=== PATIENT | male | born 1975 | race Caucasian/White ===

== ENCOUNTER 2020-12-25 14:08 | Emergency (ER) | payer MEDICAID, SELFPAY ==
[2020-12-25 14:10] VITALS: BP 134/77; PULSE 76; RESP 18; TEMP 36.8; O2SAT 98
--- NOTE | 2020-12-25 14:10 | ED.SKABFB ---
HPI - Skin/Abscess/Foreign Bdy General Chief complaint: Skin/Abscess/Foreign Body Stated complaint: poison jadyn Time Seen by Provider: 12/25/20 14:10 Source: patient and RN notes reviewed History of Present Illness HPI narrative: Patient is a 45-year-old male who presents the urgent care with complaints of poison jadyn to the right arm and bilateral lower legs. Patient states that he is highly allergic to poison jadyn and typically gets it really bad . Patient states that started 4 days ago and he has been using calamine, cortisone intact no scrub. Patient also reports of areas to the groin. No other acute complaints. No acute distress noted. Patient aware of the plan of care. Some parts of this dictation were generated by voice recognition software and may contain typographical and/or grammatical inaccuracies. Related Data Allergies Allergy/AdvReac Type Severity Reaction Status Date / Time No Known Allergies Allergy Verified 12/25/20 14:23 Review of Systems Review of Systems: CONSTITUTIONAL: Denies fever, chills, or sweats. EYES: Denies visual changes, redness, or discharge. ENT: Denies rhinorrhea, congestion, sore throat, or otalgia. CARDIOVASCULAR: Denies chest pain, palpitations, or edema. RESPIRATORY: Denies cough or dyspnea. GASTROINTESTINAL: Denies abdominal pain, nausea, vomiting, or diarrhea. GENITOURINARY: Denies dysuria or hematuria. SKIN: Reports poison jadyn to the right arm, groin and bilateral lower legs MUSCULOSKELETAL: Denies back pain, joint pain, or myalgia. NEUROLOGIC: Denies headache, numbness, or weakness. All other systems reviewed are negative, except as documented in HPI. PMFSH Comments At the time of my signature, I reviewed and agree with the nursing past medical, surgical, social, and family history. There is no relevant family history pertinent to the patient complaint. Exam Narrative: GENERAL: This is a well-nourished, well-developed patient, in no apparent distress. HEAD: normocephalic, atraumatic. EYES: PERRL. Sclera clear/white. Vision is grossly intact. EARS: External ears normal NOSE: External nose normal with no obvious nasal discharge, nares without redness, no rhinorrhea. THROAT: Mucous membranes moist NECK: Neck supple CARDIOVASCULAR: Regular rate and rhythm without murmurs, gallops, or rubs. RESPIRATORY: Clear to auscultation. Breath sounds equal bilaterally. No wheezes, rales, or rhonchi. SKIN: Erythemic scattered Rhus dermatitis noted to bilateral lower legs, right arm and reported to the groin NEURO: awake, alert, and oriented to person, place and time. There were no obvious focal neurologic abnormalities. EXTREMITIES: No clubbing, cyanosis, or edema. Course Vital Signs Vital signs: Vital Signs Temperature 98.2 F 12/25/20 14:10 Pulse Rate 76 12/25/20 14:10 Respiratory Rate 18 12/25/20 14:10 Blood Pressure 134/77 12/25/20 14:10 Pulse Oximetry 98 12/25/20 14:10 Temperature 98.2 F 12/25/20 14:10 Pulse Rate 76 12/25/20 14:10 Respiratory Rate 18 12/25/20 14:10 Blood Pressure 134/77 12/25/20 14:10 Pulse Oximetry 98 12/25/20 14:10 Reviewed MDM - Skin/Abscess/Foreign Bdy MDM Narrative Medical decision making narrative: Advised the patient to complete the steroid regimen as prescribed. Be sure to eat and drink with the medication. May use an [id number] antihistamine in conjunction with a steroid for itch such as Benadryl/Claritin/Zyrtec. Continue to [id number] tech new scrub. Use the prescription cream to the affected areas as directed. Follow-up with your PCP within 2 to 5 days or for worsening symptoms or failure to improve. Differential Diagnosis Differential diagnosis: Likely urticaria, herpes zoster, allergic reaction to drug, cellulitis, insect bites, impetigo and contact dermatitis Critical Care Time Critical Care Time Critical Care Time: No Discharge Plan Discharge Clinical Impression: Rhus dermatitis Patient Dispos
== END 2020-12-25 14:30 | disposition home or self-care (01) ==
PROVIDERS: Emergency Provider Nurse Practitioner Family
DX: L23.7 Allergic contact dermatitis due to plants, except food (principal)
CPT/HCPCS: 99213; G0463

== ENCOUNTER 2024-06-25 08:06 | Emergency (ER) | payer BC, SELFPAY ==
[2024-06-25 08:16] VITALS: BP 139/88; PULSE 63; RESP 15; TEMP 36.4; O2SAT 100
--- OUTSIDE RECORDS SUMMARY | 2024-06-25 08:20 | XMS_ITS | Data Portability ---
Author Organization [facility] IP Address [address] [place] [id number] Care Team Providers Care Phlebotomy Director Name Role Phone WILLOW MCKENNA Primary Care Provider [phone] WILLOW MCKENNA Referring Provider WILLOW CARMEN Primary Care Provider Unavailabl e Assessment No assessment recorded. Plan of Treatment Reminders Order Date Submit Date Provider Last Modified By Organization Details Last Modified Time Details Appointments None recorded. Lab hepatitis C RNA, qualitativ e, serum 2021 022 [facility] (Lab), [address] [place], [address], 18:13:25 hepatic function panel, serum 2020 021 [facility] (Lab), [address] [place], [address], 22:23:20 CBC w/ diff 2020 021 [facility] (Lab), [address] [place], [address], 08:34:02 HBsAg (hepatitis B surface Ag), serum 2020 021 [facility] (Lab), [address] [place], [address], 12:11:58 hepatitis B surface Ab, quantitati ve, serum 2020 021 [facility] (Lab), [address], [place], [address], 12:11:53 hepatitis B core Ab, total, serum 2020 [facility] (Lab), [address], [place], [address], 12:11:55 BMP, serum or plasma 2020 [facility] (Lab), [address], [place], [address], 22:23:21 HIV (1+O+2) Ab, serum 2020 [facility] (Lab), [address], [place], [address], 08:34:02 RPR (rapid plasma reagin), quantitati ve, serum 2020 [facility] (Lab), [address], [place], [address], 12:12:02 prothrombi n time 2020 [facility] (Lab), [address], [place], [address], 08:34:02 hepatitis C virus genotype, PCR, blood 2020 [facility] (Lab), [address], [place], [address], 11:12:17 Referral None recorded. Procedures None recorded. Surgeries None recorded. Imaging US, liver 2020 CARMEN Not available 13:06:17 US, elastogram - Hepatitis C and history of alcohol use 2020 [facility] (Rad), [address] [place], [address], 08:30:02 Medication Orders None recorded. Patient TargetsNo targets recorded. Patient Instructions Encounter Date Encounter Id Patient Instructions Last Modified By Organization Details Last Modified Time 01/07/2021 [id number] No acetaminophen Healthy diet Strongly encouraged to discontinue smoking Cover all skin breaks and sores by yourself. If you need help, the person treating you should wear latex gloves. Don't donate blood, plasma, body organs, or other body tissue. Don't share razors, toothbrushes, manicure tools, or other personal items. Nothing to eat or drink for 3 hours before your liver ultrasound and fibroscan [email or web address] Not available 01/07/2021 16:31:56 Discussed the importance of treatment compliance and that a Patient Commitment Form will need to be signed prior to submitting preauthorization. Patient denies previous treatment for hepatitis C. Patient has been drug free for greater than 5 years. Patient denies unstable or untreated psychiatric conditions. The pathogenesis and possible progression of hepatitis C to cirrhosis, hepatoma, and possible need for liver transplant was reviewed with the patient. If the patient has not received hepatitis A and hepatitis B vaccinations, it is strongly recommended. The plan including treatment with DAAs pending lab, US and FibroScan testing results was discussed. Need for office visit 4 weeks after treatment, 8 weeks after treatment, 12 weeks post-treatment and 24 weeks post treatment. Indepth discussion of dosing schedule for Mavyret. Patient to be contacted by Specialty Pharmacy prior to mailing medications. Instructed to answer the call even if the callerID number is not recognized. [email or web address] Not available 01/07/2021 16:06:38 Reason for Referral None Reported. Results Created Date Observation Date Name Description Value Unit Range Abnormal Flag Note LastModifiedBy Organization Detail LastModifiedTime 01/08/2001/07/2021 CBC W/DIF F WBC 7.8 K/uL 3.4-10 .8 Not Available [facility] (Lab) [address] [place], [address], 01/07/2021 21:50:02 01/08/2001/07/2021 CBC W/DIF F red blood count 5.1 M/uL 4.5-6. 3 Not Available [facility] (Lab) [address] [place], [address], 01/07/2021 21:50:02 01/08/20 21 01/07/2021 CBC W/DIF F hemoglobin 15.2 g/dL 13.5-1 7.5 Not Available [facility] (Lab) [address] [place], [address], 01/07/2021 21:50:02 01/08/20 21 01/07/2021 CBC W/DIF F hematocrit 46.2 % 40.0-5 2.0 Not Available [facility] (Lab) [address] [place], [address], 01/07/2021 21:50:02 01/08/20 21 01/07/2021 CBC W/DIF F MCV 91 fL 80-95 Not Available [facility] (Lab) [address] [place], [address], 01/07/2021 21:50:02 01/08/20 21 01/07/2021 CBC W/DIF F MCH 30 pg 27-32 Not Available [facility] (Lab) [address] [place], [address], 01/07/2021 21:50:02 01/08/20 21 01/07/2021 CBC W/DIF F MCHC 33 g/dL 32-36 Not Available [facility] (Lab) [address] [place], [address], 01/07/2021 21:50:02 01/08/20 21 01/07/2021 CBC W/DIF F platelets 240 K/uL 155-37 9 Not Available [facility] (Lab) [address] [place], [address], 01/07/2021 21:50:02 01/08/20 21 01/07/2021 CBC W/DIF F RDW 14.5 % 11.5-1 4.5 Not Available [facility] (Lab) [address] [facility], [place], [address], 01/07/2021 21:50:02 01/08/20 21 01/07/2021 CBC W/DIF F MPV 9.7 fL 8.9-12 .7 Not Available [facility] (Lab) [address] [facility], [place], [address], 01/07/2021 21:50:02 01/08/20 21 01/07/2021 CBC W/DIF F neutrophils absolute 4.8 K/uL 1.4-7. 0 Not Available [facility] (Lab) [address] [facility], [place], [address], 01/07/2021 21:50:02 01/08/20 21 01/07/2021 CBC W/DIF F lymphs (absolute) 2.2 K/uL 0.7-3. 1 Not Available [facility] (Lab) [address] [facility], [place], [address], 01/07/2021 21:50:02 01/08/20 21 01/07/2021 CBC W/DIF F monocytes (absolute) 0.6 K/uL 0.1-0. 9 Not Available [facility] (Lab) [address] [facility], [place], [address], 01/07/2021 21:50:02 01/08/20 21 01/07/2021 CBC W/DIF F eos (absolute) 0.2 K/uL 0.0-0. 4 Not Available [facility] (Lab) [address] [place], [address], 01/07/2021 21:50:02 01/08/20 21 01/07/2021 CBC W/DIF F baso (absolute) 0.0 K/uL 0.0-0. 3 Not Available [facility] (Lab) [address] [place], [address], 01/07/2021 21:50:02 01/08/20 21 01/07/2021 CBC W/DIF F neut % 61.3 % 40.0-7 4.0 Not Available [facility] (Lab) [address] [place], [address], 01/07/2021 21:50:02 01/08/20 21 01/07/2021 CBC W/DIF F lymphs % 27.9 % 14.0-4 6.0 Not Available [facility] (Lab) [address] [place], [address], 01/07/2021 21:50:02 01/08/20 21 01/07/2021 CBC W/DIF F mono % 7.3 % 4.0-12 .0 Not Available [facility] (Lab) [address] [facility], [place], [address], 01/07/2021 21:50:02 01/08/20 21 01/07/2021 CBC W/DIF F eos % 3 % 0-5 Not Available [facility] (Lab) [address] [place], [address], 01/07/2021 21:50:02 01/08/20 21 01/07/2021 CBC W/DIF F baso % 0.3 % 0.0-1. 0 Not Available [facility] (Lab) [address] [place], [address], 01/07/2021 21:50:02 01/08/20 21 01/07/2021 HIV 4TH GENER ATION RAPID COMBO HIV-1/2 Ag NON REACTI VE non reacti ve Not Available [facility] (Lab) [address] [place], [address], 01/07/2021 22:09:45 01/08/20 21 01/07/2021 HIV 4TH GENER ATION RAPID COMBO HIV-1/2 Ab NON REACTI VE non reacti ve Not Available [facility] (Lab) [address] [place], [address], 01/07/2021 22:09:45 10/06/20 21 01/07/2021 HIV 4TH GENER ATION RAPID COMBO HIV 4 rapid comment This assay s perfo rmanc e santosh cteri stics have not been evalu ated for patie nts under 12 Not Available [facility] (Lab) [address], [place], [address], 01/07/2021 22:09:45 01/08/20 21 01/07/2021 PROTH ROMBI N TIME (PT/I NR) PT 9.9 secon ds 9.3-11 .1 Not Available [facility] (Lab) [address], [place], [address], 01/07/2021 22:16:27 01/08/20 21 01/07/2021 PROTH ROMBI N TIME (PT/I NR) INR 1.0 0.4-2. 0 Not Available [facility] (Lab) [address], [place], [address], 01/07/2021 22:16:27 01/08/20 21 01/07/2021 PROTH ROMBI N TIME (PT/I NR) coagcom Please note Refere nce Range has change d Not Available [facility] (Lab) [address], [place], [address], 01/07/2021 22:16:27 01/08/20 21 01/07/2021 LIVER PANEL (HEPA TIC FUNCT ION PANEL ) total protein 7.0 g/dL 6.7-8. 2 Not Available [facility] (Lab) [address], [place], [address], 01/07/2021 22:23:20 01/08/20 21 01/07/2021 LIVER PANEL (HEPA TIC FUNCT ION PANEL ) albumin, serum 4.7 g/dL 3.5-5. 5 Not Available [facility] (Lab) [address], [place], [address], 01/07/2021 22:23:20 01/08/20 21 01/07/2021 LIVER PANEL (HEPA TIC FUNCT ION PANEL ) bilt 0.2 mg/dL 0.0-1. 2 Not Available [facility] (Lab) [address] [place], [address], 01/07/2021 22:23:20 01/08/20 21 01/07/2021 LIVER PANEL (HEPA TIC FUNCT ION PANEL ) bild <0.20 mg/dL 0.10-0 .50 Not Available [facility] (Lab) [address] [place], [address], 01/07/2021 22:23:20 01/08/20 21 01/07/2021 LIVER PANEL (HEPA TIC FUNCT ION PANEL ) AST 16.7 U/L 10.0-4 2.0 Not Available [facility] (Lab) [address] [place], [address], 01/07/2021 22:23:20 01/08/20 21 01/07/2021 LIVER PANEL (HEPA TIC FUNCT ION PANEL ) ALT 23.7 U/L 10.0-6 0.0 Not Available [facility] (Lab) [address] [place], [address], 01/07/2021 22:23:20 01/08/20 21 01/07/2021 LIVER PANEL (HEPA TIC FUNCT ION PANEL ) alk phos 72.8 IU/L 42.0-1 21.0 Not Available [facility] (Lab) [address] [place], [address], 01/07/2021 22:23:20 01/08/20 21 01/07/2021 LIVER PANEL (HEPA TIC FUNCT ION PANEL ) agratio 2.0 Not Available [facility] (Lab) [address] [place], [address], 01/07/2021 22:23:20 01/08/20 21 01/07/2021 BASIC METAB OLIC PANEL (BMP) glucose, serum 98 mg/dL 65-99 Not Available [facility] (Lab) [address], [place], [address], 01/07/2021 22:23:20 01/08/20 21 01/07/2021 BASIC METAB OLIC PANEL (BMP) BUN 22 mg/dL 8-26 Not Available [facility] (Lab) [address], [place], [address], 01/07/2021 22:23:20 01/08/20 21 01/07/2021 BASIC METAB OLIC PANEL (BMP) creatinine, serum 0.93 mg/dL 0.50-1 .40 Not Available [facility] (Lab) [address], [place], [address], 01/07/2021 22:23:20 01/08/20 21 01/07/2021 BASIC METAB OLIC PANEL (BMP) BUN/creatnin e ratio 23.5 Not Available [facility] (Lab) [address], [place], [address], 01/07/2021 22:23:20 01/08/20 21 01/07/2021 BASIC METAB OLIC PANEL (BMP) sodium, serum 139.7 mmol/ L 136.0- 144.0 Not Available [facility] (Lab) [address] [facility], [place], [address], 01/07/2021 22:23:20 01/08/20 21 01/07/2021 BASIC METAB OLIC PANEL (BMP) potassium, serum 4.4 mmol/ L 3.5-5. 3 Not Available [facility] (Lab) [address] [place], [address], 01/07/2021 22:23:20 01/08/20 21 01/07/2021 BASIC METAB OLIC PANEL (BMP) chloride, serum 104 mmol/ l 101-11 1 Not Available [facility] (Lab) [address] [place], [address], 01/07/2021 22:23:20 01/08/20 21 01/07/2021 BASIC METAB OLIC PANEL (BMP) carbon dioxide total 24.4 mmol/ L 21.0-3 2.0 Not Available [facility] (Lab) [address] [place], [address], 01/07/2021 22:23:20 01/08/20 21 01/07/2021 BASIC METAB OLIC PANEL (BMP) aniongp 15.0 mmol/ L Not Available [facility] (Lab) [address] [place], [address], 01/07/2021 22:23:20 01/08/20 21 01/07/2021 BASIC METAB OLIC PANEL (BMP) calcium, serum 9.6 mg/dL 8.2-10 .0 Not Available [facility] (Lab) [address] [place], [address], 01/07/2021 22:23:20 01/08/20 21 01/07/2021 BASIC METAB OLIC PANEL (BMP) osmol 282.0 mOsm/ L 275.0- 301.0 Not Available [facility] (Lab) [address] [place], [address], 01/07/2021 22:23:20 01/08/20 21 01/07/2021 BASIC METAB OLIC PANEL (BMP) eGFR, AM 112 m/lmi n/1.7 3_m >=60 Not Available [facility] (Lab) [address] [place], [address], 01/07/2021 22:23:20 01/08/20 21 01/07/2021 BASIC METAB OLIC PANEL (BMP) eGFR, non- AM 93 mL/mi n/1.7 3/m >=60 Not Available [facility] (Lab) [address] [place], [address], 01/07/2021 22:23:20 01/08/20 21 01/08/2021 HEPAT ITIS B SURFA CE AB IMMUN ITY STATU S hep B surface Ab, Q Non Reacti ve Non React raisa: Incon siste nt with immun ity, less than 10 mIU/m L React raisa: Consi stent with immun ity, great er than 9.9 mIU/m L Not Available [facility] (Lab) [address] [place], [address], 01/08/2021 12:11:52 01/08/2001/08/2021 HEP B CORE AB, TOTAL hep B core Ab, tot Negati ve negati ve Not Available [facility] (Lab) [address] [facility], [place], [address], 01/08/2021 12:11:55 01/08/2001/08/2021 HEPAT ITIS B SURFA CE AG HBsAg screen Negati ve negati ve Not Available [facility] (Lab) [address] [facility], [place], [address], 01/08/2021 12:11:58 01/08/2001/08/2021 RPR (RAPI D PLASM A REAGI N), QUANT ITATI ON rapid plasma reagin, quant Non Reacti ve nonrea <1:1 Not Available [facility] (Lab) [address] [place], [address], 01/08/2021 12:12:02 01/08/20 21 01/09/2021 HCV RNA BY PCR, QN RFX GEN, GRAPH ICAL hepatitis C quantitation HCV Not Detect ed IU/mL Not Available [facility] (Lab) [address] [place], [address], 01/09/2021 11:12:17 01/08/2001/09/2021 HCV RNA BY PCR, QN RFX GEN, GRAPH ICAL HCV log10 UPTCAL log10 _IU/m L Unabl e to calcu late resul t since non-n umeri c resul t obtai gael for compo nent test. Not Available [facility] (Lab) [address] [place], [address], 01/09/2021 11:12:17 01/08/20 01/09/2021 HCV RNA BY PCR, QN RFX GEN, GRAPH ICAL test information [facility] The quant itati ve range of this assay is 15 IU/mL to 100 palmira on IU/mL . Not Available [facility] (Lab) [address] [facility], [place], [address], 01/09/2021 11:12:17 01/08/20 21 01/09/2021 HCV RNA BY PCR, QN RFX GEN, GRAPH ICAL HCV genotype RTNI Not indic ated Not Available [facility] (Lab) [address] [facility], [place], [address], 01/09/2021 11:12:17 12/11/19 22 12/16/2021 HCV RNA QUANT ITATI VE- REALT BUD ABBOT T hepatitis C quantitation <12 IU/mL HCV RNA not detec lauro Not Available [facility] (Lab) [address] [facility], [place], [address], 12/16/2021 18:13:25 12/11/19 22 12/16/2021 HCV RNA QUANT ITATI VE- REALT BUD ABBOT T HCV log10 UPTCAL log10 _IU/m L Unabl e to calcu late resul t since non-n umeri c resul t obtai gael for compo nent test. Not Available [facility] (Lab) [address] [facility], [place], [address], 12/16/2021 18:13:25 12/11/19 22 12/16/2021 HCV RNA QUANT ITATI VE- REALT BUD ABBOT T test information: [facility] The quant ifiab le range of this assay is 12 to 100,0 00,00 0 IU/mL for genot ypes 1-6 and the limit of detec tion of the assay is 12 IU/mL . Not Available [facility] (Lab) [address] [facility], [place], [address], 12/16/2021 18:13:25 01/31/20 21 01/30/2021 US, liver Exam: Limite d abdomi nal ultras ound of the liver Access ion: [id number] Exam Date/T bud: 2020 11:09 AM Reason For Exam: [id number] 006: Chroni c hepati tis C Chroni c hepati tis C Compar latasha: None Ultras ound evalua tion of the liver was perfor med for analys is of graysc ella and color Dopple r imagin g charac terist ics. Findin gs: The liver is normal in size and surfac e contou r. No abnorm al echoge joan hepati c lesion s are seen. Portal vein is patent and shows normal direct ional and wavefo rm flow on Dopple r imagin g. The IVC is patent . Visual ized portio n of gallbl adder unrema rkable . No surrou nding abnorm al fluid collec tions. ===== IMPRES HERNANDEZ: ===== 1. No acute hepati c abnorm alitie s. READ BY: SIOMARA LOPEZ MD, HAN Kaufman Date: 2020 11:38 [facility] (Rad) [address] [place], [address], 02/10/2021 13:38:47 03/06/20 21 01/30/2021 US, elast ogram IRINA Rees NAME: MORENTIA ARCE EXAM: Fibros can EXAM DATE: 2020 11:09 AM COMPAR LATASHA: None HISTOR Y: Hepati tis C TECHNI QUE: Patiscotty t's fastin g status is unknow n. Standa rd Fibros can data acquis ition protoc ol was used. Ten valid measur ements of VCTE (Vibra tion Contro lled Transi ent Elasto graphy ) and CAP (Contr olled Attenu ation Parame ter) were obtain ed. FINDIN GS: Mean CAP: 307 dB/m, overes timate d due to increa sed SCD for probe size Mean VCTE: 3.8 kPa IQR/me lachelle: 18 % IMPRES HERNANDEZ: METAVI R fibros is score: F0/F1 METAVI R fibros is score F0 / F1: 7.0 or less F2: 7.1 - 9.4 F3: 9.5 - 11.9 F4: 12.0 or sedrick moore READ BY: CHARITY CACERES Date: 2020 07:25 [facility] (Rad) [address], [place], [address], 03/18/2021 12:46:33 Result Notes None recorded. Problems Name Problem SNOMED Code Status Onset Date Resolution Date Notes Provider Name and Address Organization Details Recorded Time Body mass index 30+ - obesity 452179383 Active 2020 STERLING CECILIAERNESTO REYNOLDS [address], [place], [address], [place] [facility] 16:04:27 Chronic hepatitis C 501361302 Active 202001/09/2021: HCV RNA Quant - not detectable STERLING BROOKSERNESTO REYNOLDS [address], [place], [address], [place] [facility] 11:38:50 Problem Notes None recorded. Procedures Surgical History None recorded. Imaging Results Imaging Date Name Status LastModified by Organiz ation Details LastModified Time 01/30/2021 US, liver completed [facility] (Rad) [address], [place], [address], 02/10/2021 13:38:47 01/30/2021 US, elastogram completed [facility] (Rad) [address], [place], [address], 03/18/2021 12:46:33 Procedure Notes None recorded. Medical Equipment None Reported. Allergies No known drug allergies Medications Name Sig Start Date Stop Date Status Note LastModified by Organization Details LastModified Time prednisone 10 mg tablet PLEASE SEE ATTACHED FOR DETAILED DIRECTION S 01/07 completed Not Available Not Available Not Available triamcinolo ne acetonide 0.5 % topical cream APPLY TO AFFECTED AREA 3 TIMES A DAY 01/07 completed Not Available Not Available Not Available Vitals Date Recorded Body height Respiratory rate Body temperature Oxygen saturation Oxygen saturation in Arterial blood by Pulse oximetry Pain severity - 0-10 verbal numeric rating [Score] - Reported Body mass index (BMI) Body weight Heart rate Systolic blood pressure Diastolic blood pressure Provider Name and Address Organization Details Last Updated DateTime 1 182.88 cm 18 /min 97.3 [degF] 99 % 99 % 0 36 kg/m2 503945. 06 g 63 /min 155 mm[Hg] 98 mm[Hg] Mica MattDAYRON [facility] 1 15:42:33 Date Recorded Body height Body mass index (BMI) Body weight Body temperature Pain severity - 0-10 verbal numeric rating [Score] - Reported Heart rate Respiratory rate Oxygen saturation Oxygen saturation in Arterial blood by Pulse oximetry Systolic blood pressure Diastolic blood pressure Provider Name and Address Organization Details Last Updated DateTime 2 182.88 cm 39.5 kg/m2 254305. 38 g 98 [degF] 0 82 /min 18 /min 100 % 100 % 130 mm[Hg] 86 mm[Hg] Lakshmi Fleming LPN [facility] 2 16:17:31 Social History Question Answer Notes LastModified by Organizat ion Details LastModified Time Tobacco Smoking Status Current Every Day Smoker STERLING PARRA, ERNESTO [address] [place], [address], [facility] 01/07/2021 15:52:25 Do You Have An Advance Directive? No Information n ot available 12/10/2021 What Is Your Level Of Alcohol Consumption? None Information not available 01/07/2021 In The 14 Days Before Symptom Onset, Have You Had Close Contact With A Laboratory-confirm ed COVID-19 While That Case Was Ill? No Information n ot available 12/10/2021 In The 14 Days Before Symptom Onset, Have You Had Close Contact With A Person Who Is Under Investigation For COVID-19 While That Person Was Ill? No Information not available 12/10/2021 Have You Been To An Area Known To Be High Risk For COVID-19? No Information not available 12/10/2021 Do You Have A Medical Power Of Claim Service Representative? No Information not available 12/10/2021 What Was The Date Of Your Most Recent Tobacco Screening? 12/10/2021 Information not available 12/10/2021 How Much Tobacco Do You Smoke? 0.5 PPD Information not available 01/07/2021 Do You Use Any Illicit Or Recreational Drugs? No Information not available 01/07/2021 Do You Or Have You Ever Used Any Other Forms Of Tobacco Or Nicotine? No Information not available 01/07/2021 Sex: Unknown Functional Status None recorded. Mental Status None recorded. Family History Nothing Reported. Medical History No medical history recorded. Past Encounters Encounter ID Performer Location Encounter Start Date Encounter Closed Date Diagnosis/Indication Diagnosis SNOMED-CT Code Diagnosis ICD10 Code Diagnosis Note [id number] STERLING PARRA NP [facility] [address] [place] [address] 01/07/2021 15:37:01 01/12/2021 09:56:36 Body mass index 30+ - obesity 752323778 Z68.36 Encouraged weight loss -Choosing low-fat, low-calori e foods -Eating smaller portions -Drinking water instead of sugary drinks -Being physically active Chronic hepatitis C 1283 34052 B18.2 Treatment naiveWife with Hepatitis C [id number] Roman Alves DO [facility] [address] [place] [address] 12/10/2021 15:55:45 12/11/2021 08:54:46 Chronic hepatitis C 084258665 B18.2 History of hepatitis C 9439699047 9101 Z86.19 Body mass index 30+ - obesity 885753887 Z68.36 Screening for malignant neoplasm of colon 528751089 Z12.11 pt declined. Pt offered cologuard declined. Health Concerns Section Related Observation LastModified by Organization Detai ls LastModified Time None Recorded Concern Status LastModified by Organization Details LastModified Time None Recorded Advance Directives Directive N: Payers Encounter Date Sequence Insurance Name Policy Number Policy Hurt Covered Member ID Hurt Member ID Guarantor Name 01/07/2021 1 [facility] ON OR AFTER 10/02/20 (MEDICAID REPLACEMENT - HMO) Angel Arce [id number] Angel Arce 12/10/2021 1 [facility] ON OR AFTER 10/02/20 (MEDICAID REPLACEMENT - HMO) Angel Arce [id number] Angel Arce Notes Date Note Type Note Provider Name and Address Organization Details Recorded Time 01/07/2021 text/html 45 year old with a history of presents for assessment for Hepatitis C. States that he was tested positive for Hepatitis C 4 years ago while incarcerated but was not treated. States that he was tested every 6 months for 3 years, and was positive each time. States that his has Hepatitis C. Patient has no PCP. Patient is treatment naive and would like to be treated. Risk Factors:HeterosexualTat too: deniesBlood transfusions: deniesOccupational Exposure deniesPersonal Exposure: Girlfriend with hepatitis C Incarcerated for 4 1/2 years, released November 2020. Recreational drug use: Previous: 5 years ago - methamphetamine, cocaine, marijuana. +IVDU. Current: deniesTobacco use: 1/2 PPDEtOH Use: denies current use. Drank 15 years ago, about 2x/week - 5 - 10 mixed drinks each time for about 5 years. STERLING PARRA NP [address] [place], [address], [facility] 01/07/2021 16:32:01 12/10/2021 text/html Hx of Hepatitis C. Had needle use 6 yrs ago. We looked at the prior lab. May not have active Hep C. Roman Alves DO [address], [place], [address], [facility] 12/10/2021 16:48:01
--- NOTE | 2024-06-25 11:59 | ED_ITS ---
HPI - Eye Problem General Chief complaint: Eye Problems Stated complaint: right eye painful Time Seen by Provider: 06/25/24 11:35 History of Present Illness HPI Narrative: Pt was using colt tipped bit to grind block and felt something go in his eye 3 days ago. Pt says he has noticed FB sensation in right eye since and now has photophobia and some blurred vision. Related Data Allergies Allergy/AdvReac Type Severity Reaction Status Date / Time No Known Allergies Allergy Verified 06/25/24 08:15 Review of Systems Review of Systems: All systems reviewed & are unremarkable except as noted in HPI and below Exam Const: General: healthy appearing and no acute distress Nutritional Appearance: well nourished Orientation/consciousness: patient oriented x3 Limitations: no limitations Eyes: Conjunctivae: conjunctivae normal Pupils: Equal, round and reactive pupils present EOM: EOMs intact bilaterally Direct Ophthalmoscopy: photophobia Other: tetracaine and fluorescein applied to right eye. no increased uptake of dye, small metallic FB observed over visual axis. Neck: Neck: normal visual inspection Resp: Effort & Inspection: normal respiratory effort Auscultation: clear to auscultation bilaterally Cardio: Rate: regular rate Rhythm: regular rhythm GI: GI Palp: Yes Soft to palpation and No Tenderness to palpation present (GI) Auscultation: normal bowel sounds Course Vital Signs Vital signs: Vital Signs Temperature 97.5 F L 06/25/24 08:16 Pulse Rate 63 06/25/24 08:16 Respiratory Rate 15 06/25/24 08:16 Blood Pressure 139/88 06/25/24 08:16 Pulse Oximetry 100 06/25/24 08:16 Oxygen Delivery Room Air 06/25/24 08:16 Temperature 97.5 F L 06/25/24 08:16 Pulse Rate 63 06/25/24 08:16 Respiratory Rate 15 06/25/24 08:16 Blood Pressure 139/88 06/25/24 08:16 Pulse Oximetry 100 06/25/24 08:16 Oxygen Delivery Room Air 06/25/24 08:16 MDM - Eye Problem MDM Narrative Medical decision making narrative: Pt has metallic FB in eye. discussed with [facility] no offices in area. discussed with [facility] in [place] will see pt. Discharge Plan Discharge Clinical Impression: Acute foreign body of right cornea Patient Disposition: Home, Self-Care Condition: Stable Instructions: Antibiotic Form, Eye Foreign Body (ED) Additional Instructions: Pt to go to [facility] in [place] now. [address] [facility] [id number] Patient Language: [place] Prescriptions: No Action prednisone 10 mg tablet See Rx Instructions .ROUTE .COMPLEX Qty: 30 0RF Rx Instructions: 4 tabs daily for days 1-3, 3 tabs daily for days 4-6, 2 tabs daily for days 7-9, 1 tab daily for days 10-12 triamcinolone acetonide 0.5 % cream 1 applic topical TID Qty: 15 0RF Follow-up/Referrals: UNKNOWN,DOCTOR [Primary Care Provider] -
== END 2024-06-25 12:19 | disposition home or self-care (01) ==
PROVIDERS: Emergency Provider Emergency Medicine
DX: T15.01XA Foreign body in cornea, right eye, initial encounter (principal); W44.E9XA Other non-magnetic metal objects entering into or through a natural orifice, initial encounter
CPT/HCPCS: 99283; A9270